=== PATIENT | female | born 1990 | race Two or more races ===

== ENCOUNTER 2019-02-10 18:59 | Inpatient (IN) | payer SELFPAY ==
[~2019-02-10] VITALS: Ht 160 cm; Wt 86.2 kg
[2019-02-10 20:15] LABS: Basophils # (auto) 0.1 uL; Eosinophils % (auto) 0.2 % (0.0-7.0)
[2019-02-10 20:17] LABS: Basophils % (auto) 0.3 % (0.0-2.0); Eosinophils # (auto) 0.1 uL; Hematocrit 28.4 % (36.0-46.0); Hemoglobin 9.1 g/dL (12.2-16.2); Lymphocytes % (auto) 7.5 % (10.0-50.0); Mean Corpuscular Hemoglobin 24.6 pg (28.0-32.0); Mean Corpuscular Hgb Conc. 31.9 g/dL (32.0-36.0); Monocytes # (auto) 1.4 uL; Monocytes % (auto) 5.3 % (0.0-12.0); Neutrophils # (auto) 22.9 uL; Neutrophils % (auto) 86.7 % (37.0-80.0); Platelet Count (auto) 418 10^3/uL (140-450); Red Blood Cells 3.68 10^6/uL (4.0-5.20); Red Cell Distribution Width 15.3 % (11.8-14.3); White Blood Cell 26.4 10^3/uL (4.4-10.8)
[2019-02-10 20:33] LABS: Albumin 1.9 g/dL (3.4-5.0); BUN/Creatinine Ratio 12.6; Calcium 8.8 mg/dL (8.5-10.1); Potassium 3.7 mmol/L (3.5-5.1)
[2019-02-10 20:36] LABS: Urine Bacteria MANY /hpf (None Seen); Urine Blood 2+ /uL (Negative); Urine Mucus FEW (None Seen); Urine Specific Gravity 1.015 (1.001-1.035); Urine WBC 5 /hpf (0 - 5)
[2019-02-10 20:36] LABS: Bilirubin, Total 0.3 mg/dL (0.2-1.0); Total Protein 8.9 g/dL (6.4-8.2)
[2019-02-11] MEDS ORDERED: VANCOMYCIN PER PHARMACY 1,000 MG IV SCH (05:45)
[2019-02-11] MEDS ORDERED: SODIUM CHLORIDE 0.9% 2,450 ML IV ONE (05:45)
[2019-02-11] MEDS ORDERED: PIPERACILLIN-TAZOB 3.375GM 100 ML IV SCH (06:00)
[2019-02-11 06:15] LABS: INR 0.94 (0.9-1.15); Prothrombin Time 10.1 sec (9.27-12.13)
[2019-02-11 07:16] LABS: Basophils # (auto) 0.1 uL; Eosinophils % (auto) 0.2 % (0.0-7.0); Lymphocytes % (auto) 7.6 % (10.0-50.0); Mean Corpuscular Hemoglobin 24.7 pg (28.0-32.0)
[2019-02-11 07:18] LABS: Basophils % (auto) 0.5 % (0.0-2.0); Eosinophils # (auto) 0 uL; Hematocrit 28.3 % (36.0-46.0); Hemoglobin 9.1 g/dL (12.2-16.2); Lymphocytes # (auto) 2.1 uL; Mean Corpuscular Volume 77.1 fL (80.0-100.0); Monocytes # (auto) 1.3 uL; Monocytes % (auto) 4.6 % (0.0-12.0); Neutrophils # (auto) 24.5 uL; Neutrophils % (auto) 87.1 % (37.0-80.0); Platelet Count (auto) 431 10^3/uL (140-450); Red Blood Cells 3.68 10^6/uL (4.0-5.20); Red Cell Distribution Width 14.8 % (11.8-14.3); White Blood Cell 28.1 10^3/uL (4.4-10.8)
[2019-02-11 07:35] LABS: Albumin 1.9 g/dL (3.4-5.0); BUN/Creatinine Ratio 11.9; Calcium 8.9 mg/dL (8.5-10.1); Potassium 4.2 mmol/L (3.5-5.1)
[2019-02-11 07:38] LABS: Bilirubin, Total 0.4 mg/dL (0.2-1.0); Total Protein 9.5 g/dL (6.4-8.2)
[2019-02-11] MEDS ORDERED: NEOMYCIN-POLYMY-DEXAMETH 0.1% OPTH(EYE) OINT 3.5GM EACHEYE ONE (07:45)
[2019-02-11] MEDS ORDERED: ENOXAPARIN SOD 60 MG/0.6 ML SYRINGE SC ONE (07:45)
[2019-02-11] MEDS ORDERED: SODIUM CHLORIDE 0.9% 1,000 ML IV SCH ×2 (08:45→09:15)
[2019-02-11] MEDS ORDERED: ONDANSETRON HCL 4 MG/2 ML VIAL IV PRN (08:45)
[2019-02-11] MEDS ORDERED: ACETAMINOPHEN 500 MG TAB PO PRN (08:45)
[2019-02-11] MEDS ORDERED: NITROGLYCERIN 0.4 MG SL TAB SL PRN (08:45)
[2019-02-11] MEDS ORDERED: SODIUM CHLORIDE 0.9% 1,000 ML IV ONE (08:45)
[2019-02-11] MEDS ORDERED: VANCOMYCIN PER PHARMACY 0 MG IV SCH (08:45)
[2019-02-11] MEDS ORDERED: MORPHINE SULF INJ 2 MG/ML SYRINGE 1ML IV PRN ×2 (08:45)
[2019-02-11] MEDS ORDERED: DEXTROSE (50%) 50ML SYRG IV PRN (08:45)
[2019-02-11] MEDS ORDERED: cefTRIAXone 1GM/50ML D5W 50 ML IV SCH (09:00)
[2019-02-11] MEDS ORDERED: ACETAMINOPHEN 500 MG TAB PO ONE (09:00)
[2019-02-11] MEDS ORDERED: PIPERACILLIN-TAZOB 3.375GM 100 ML IV ONE (09:30)
[2019-02-11] MEDS ORDERED: VANCOMYCIN 1GM/250ML 250 ML IV SCH (10:00)
[2019-02-11] MEDS ORDERED: VANCOMYCIN 1GM/250ML 250 ML IV ONE ×2 (10:00)
[2019-02-11 10:25] LABS: Creatinine, Urine 260 mg/dL (30.0-125.0); Sodium Urine 43 mmol/L (40-220)
[2019-02-11] MEDS: ACCU-CHEK COMFORT CURVE STRIP VI SCH ×3 (11:56→21:44)
[2019-02-11] MEDS: VANCOMYCIN 1GM/250ML 250 ML IV SCH (12:04)
[2019-02-11] MEDS: PANTOPRAZOLE 40 MG/10 ML VIAL IV SCH (12:04)
[2019-02-11] MEDS: InsuLIN REG 1unit/0.01ml Soln (100units/ml) SC SCH ×3 (12:04→21:44)
[2019-02-11] MEDS: SODIUM CHLORIDE 0.9% 1,000 ML IV SCH ×2 (12:04→18:14)
[2019-02-11] MEDS: NEOMYCIN-POLYMY-DEXAMETH 0.1% OPTH(EYE) OINT 3.5GM EACHEYE SCH ×2 (14:20→21:44)
--- NOTE | 2019-02-11 15:05 | NUR ---
Telemetry admit from ER ANGY DACOSTA admitted to Telemetry unit after SBAR received. Patient oriented to HENRY back RN, unit, room, bed, and unit policies regarding patient care and visiting hours. Patient now on continuous telemetry monitoring, tele box # 12 and telemetry reading on arrival to unit is . Patient weighed by bedscale and encouraged to call if they need something. All questions and concerns addressed, patient verbalized understanding. Note:
[2019-02-11 17:00] VITALS: BP 154/73
--- NOTE | 2019-02-11 18:57 | NUR ---
END OF SHIFT NOTE PATIENT AWAKE AND ALERT SITTING UP IN BED. NO S/S OF DISTRESS OR SOB NOTED. BED IN LOWEST LOCKED POSITION, CALL LIGHT WITHIN REACH. WILL ENDORSE CARE TO NOC RN.
--- NOTE | 2019-02-11 19:25 | NUR ---
Opening Shift Note Received report from Leah YIP. Assumed care of patient, awake and alert. No S/S of distress/SOB or pain. Instructed on POC and to call for assist PRN, will continue to monitor for changes Q1hr and PRN.
--- NOTE | 2019-02-11 21:44 | NUR ---
Temp of 100.1, Tylenol PO given, cooling measures done, continue care.
[2019-02-11 22:55] VITALS: BP 135/79
--- NOTE | 2019-02-11 23:15 | NUR ---
Latest temperature is 99.2, will continue to monitor.
[2019-02-12] MEDS: SODIUM CHLORIDE 0.9% 1,000 ML IV SCH ×3 (01:57→14:40)
--- NOTE | 2019-02-12 04:08 | NUR ---
Urine sample sent to laboratory.
[2019-02-12 05:29] VITALS: BP 155/90
[2019-02-12 06:11] LABS: Basophils # (auto) 0.1 uL; Basophils % (auto) 0.3 % (0.0-2.0); Eosinophils # (auto) 0.2 uL; Hemoglobin 7.6 g/dL (12.2-16.2); Monocytes # (auto) 1.1 uL; Monocytes % (auto) 4.9 % (0.0-12.0)
[2019-02-12 06:13] LABS: Eosinophils % (auto) 1.1 % (0.0-7.0); Hematocrit 23.7 % (36.0-46.0); Lymphocytes # (auto) 1.4 uL; Lymphocytes % (auto) 6.6 % (10.0-50.0); Mean Corpuscular Hemoglobin 24.8 pg (28.0-32.0); Mean Corpuscular Hgb Conc. 32.1 g/dL (32.0-36.0); Mean Corpuscular Volume 77.3 fL (80.0-100.0); Neutrophils # (auto) 18.7 uL; Neutrophils % (auto) 87.1 % (37.0-80.0); Platelet Count (auto) 386 10^3/uL (140-450); Red Blood Cells 3.07 10^6/uL (4.0-5.20); White Blood Cell 21.4 10^3/uL (4.4-10.8)
[2019-02-12 06:34] LABS: Albumin 1.5 g/dL (3.4-5.0); BUN/Creatinine Ratio 12.7; Calcium 8.2 mg/dL (8.5-10.1); Potassium 3.5 mmol/L (3.5-5.1)
[2019-02-12 06:36] LABS: Bilirubin, Total 0.4 mg/dL (0.2-1.0); Total Protein 7.6 g/dL (6.4-8.2)
[2019-02-12] MEDS: NEOMYCIN-POLYMY-DEXAMETH 0.1% OPTH(EYE) OINT 3.5GM EACHEYE SCH ×3 (06:39→21:47)
[2019-02-12] MEDS: ACCU-CHEK COMFORT CURVE STRIP VI SCH ×4 (06:39→21:47)
[2019-02-12] MEDS: InsuLIN REG 1unit/0.01ml Soln (100units/ml) SC SCH ×4 (06:39→21:47)
[2019-02-12 07:23] LABS: Urine Bacteria NONE SEEN /hpf (None Seen); Urine Blood 1+ /uL (Negative); Urine Mucus FEW (None Seen); Urine Specific Gravity 1.008 (1.001-1.035); Urine WBC 1 /hpf (0 - 5)
--- NOTE | 2019-02-12 07:45 | NUR ---
Opening Shift Note Assumed care of patient, awake and alert. Breath sounds even and unlabored, saturating at 97%. No S/S of distress/SOB or pain. Instructed on POC and to call for assist PRN, will continue to monitor for changes Q1hr and PRN.
--- NOTE | 2019-02-12 07:52 | NUR ---
Patient afebrile, no sob or pain. Endorsed care to Amber YIP.
[2019-02-12 08:00] VITALS: BP 134/89
[2019-02-12 08:49] LABS: Protein, Urine 253.2 mg/dL (0.0-11.9)
[2019-02-12 09:00] VITALS: BP 134/89
--- NOTE | 2019-02-12 09:00 | NUR ---
Respiratory note: SCHEDULE ABG NOT DONE. PT REFUSED. RN AWARE OF IT.
--- NOTE | 2019-02-12 09:00 | NUR ---
Respiratory note: PT REFUSED ABG. DID NOT WANT IT DONE. RN AWARE OF REFUSAL.
[2019-02-12] MEDS: PANTOPRAZOLE 40 MG/10 ML VIAL IV SCH (09:30)
[2019-02-12] MEDS: HYDROcodone-ACET 5/325MG TAB PO PRN (09:30)
[2019-02-12] MEDS: cefTRIAXone 1GM/50ML D5W 50 ML IV SCH (09:30)
[2019-02-12] MEDS: VANCOMYCIN 1GM/250ML 250 ML IV SCH (11:46)
[2019-02-12 13:00] VITALS: BP 126/74
[2019-02-12] MEDS ORDERED: IPRATROPIUM BROM 0.5 MG/2.5ML INH SOL NEB PRN (14:15)
[2019-02-12] MEDS ORDERED: AZITHROMYCIN 500MG/ 250ML 250 ML IV ONE (14:15)
[2019-02-12] MEDS ORDERED: ALBUTEROL SULF 2.5 MG/0.5ML(0.5%) NEB SOLN NEB PRN (14:15)
[2019-02-12] MEDS ORDERED: ERGOCALCIFEROL 50,000 UNIT(1.25MG) CAP PO SCH (14:45)
--- NOTE | 2019-02-12 15:10 | NUR ---
Urine culture sent to Lab
[2019-02-12 16:05] LABS: Alcohol, Urine < 3.0 mg/dL (0-5); Amphetamine Screen, Urine NEGATIVE (NEGATIVE); Barbiturate Scree,Urine NEGATIVE (NEGATIVE); Benzodiazephine Screen, Urine NEGATIVE (NEGATIVE); Cannabinoid Screen, Urine NEGATIVE (NEGATIVE); Cocaine Screen, Urine NEGATIVE (NEGATIVE); Opiate Scree,Urine NEGATIVE (NEGATIVE); Phencyclidine Screen, Urine NEGATIVE (NEGATIVE)
[2019-02-12 16:08] LABS: % Iron Saturation 12.9 % (15-50)
--- NOTE | 2019-02-12 16:40 | NUR ---
Rapid influenza swab sent to lab.
[2019-02-12 16:55] VITALS: BP 122/74
--- NOTE | 2019-02-12 19:22 | NUR ---
No s/s of distress noted/stated. Bed at lowest position and call light within reach. Care endorsed to NOC RN.
--- NOTE | 2019-02-12 19:30 | NUR ---
Opening Shift Note Received report from Amber YIP. Assumed care of patient, awake and alert. No S/S of distress/SOB or pain. Non-productive cough noted. Instructed on POC and to call for assist PRN, will continue to monitor for changes Q1hr and PRN.
[2019-02-12 20:00] VITALS: BP 138/82
[2019-02-12] MEDS: ALBUTEROL SULF 2.5 MG/0.5ML(0.5%) NEB SOLN NEB SCH (21:17)
[2019-02-12] MEDS: IPRATROPIUM BROM 0.5 MG/2.5ML INH SOL NEB SCH (21:17)
[2019-02-13] VITALS (12 sets, daily range): BP systolic 129–154; BP diastolic 70–87
[2019-02-13] MEDS: ALBUTEROL SULF 2.5 MG/0.5ML(0.5%) NEB SOLN NEB SCH ×4 (00:56→19:55)
[2019-02-13] MEDS: IPRATROPIUM BROM 0.5 MG/2.5ML INH SOL NEB SCH ×4 (00:56→19:55)
[2019-02-13] MEDS: SODIUM CHLORIDE 0.9% 1,000 ML IV SCH (04:01)
[2019-02-13 06:11] LABS: Basophils # (auto) 0.1 uL; Basophils % (auto) 0.4 % (0.0-2.0); Eosinophils # (auto) 0.2 uL; Lymphocytes # (auto) 1.6 uL
[2019-02-13 06:14] LABS: Eosinophils % (auto) 1.3 % (0.0-7.0); Hematocrit 20.9 % (36.0-46.0); Lymphocytes % (auto) 9.6 % (10.0-50.0); Mean Corpuscular Hemoglobin 24.8 pg (28.0-32.0); Mean Corpuscular Hgb Conc. 32.1 g/dL (32.0-36.0); Mean Corpuscular Volume 77.4 fL (80.0-100.0); Monocytes % (auto) 6.2 % (0.0-12.0); Neutrophils # (auto) 13.7 uL; Neutrophils % (auto) 82.5 % (37.0-80.0); Platelet Count (auto) 376 10^3/uL (140-450); Red Cell Distribution Width 14.9 % (11.8-14.3); White Blood Cell 16.7 10^3/uL (4.4-10.8)
[2019-02-13 06:16] LABS: Hemoglobin 6.7 g/dL (12.2-16.2)
[2019-02-13] MEDS: ACCU-CHEK COMFORT CURVE STRIP VI SCH ×4 (06:42→21:49)
[2019-02-13] MEDS: NEOMYCIN-POLYMY-DEXAMETH 0.1% OPTH(EYE) OINT 3.5GM EACHEYE SCH ×3 (06:42→21:50)
[2019-02-13 06:51] LABS: Calcium 8.2 mg/dL (8.5-10.1); Potassium 3.4 mmol/L (3.5-5.1)
[2019-02-13 06:55] LABS: Albumin 1.3 g/dL (3.4-5.0); BUN/Creatinine Ratio 8.8; Bilirubin, Total 0.2 mg/dL (0.2-1.0); Total Protein 7.3 g/dL (6.4-8.2)
[2019-02-13] MEDS: InsuLIN REG 1unit/0.01ml Soln (100units/ml) SC SCH ×4 (07:08→21:56)
[2019-02-13] MEDS: cefTRIAXone 1GM/50ML D5W 50 ML IV SCH (08:33)
--- NOTE | 2019-02-13 09:35 | NUR ---
OFF Unit Patient brought down to Nuclear Med department for NM VQ Scan.
--- NOTE | 2019-02-13 10:25 | NUR ---
Back to room.
[2019-02-13] MEDS: VANCOMYCIN 1GM/250ML 250 ML IV SCH (10:47)
[2019-02-13] MEDS: PANTOPRAZOLE 40 MG/10 ML VIAL IV SCH (10:47)
--- NOTE | 2019-02-13 10:53 | NUR ---
2D ECHO being done at bedside.
--- NOTE | 2019-02-13 11:55 | NUR ---
Dr. Degroot at bedside.
[2019-02-13] MEDS: AZITHROMYCIN 500MG/ 250ML 250 ML IV SCH (12:05)
--- NOTE | 2019-02-13 12:23 | NUR ---
Elevated BP BP 154/82, per Dr. Degroot give Lasix now instead of after blood transfusion. Lasix IV given.
[2019-02-13] MEDS ORDERED: FUROSEMIDE 40 MG/4 ML VIAL IV ONE (13:30)
--- NOTE | 2019-02-13 14:20 | NUR ---
Received report from THEODORA Teague and assumed care of patient.
--- NOTE | 2019-02-13 19:35 | NUR ---
Pre blood transfusion v/S: Temp 99.1, BP 147/80,RR 18 , HR 104.
--- NOTE | 2019-02-13 19:56 | NUR ---
IST unit of blood transfusion started as ordered after blood checked with THEODORA Stern. Will continue to monitor.
[2019-02-13] MEDS ORDERED: AMLO5TAB13 PO (20:12)
[2019-02-13] MEDS ORDERED: INSU100I27 SC (20:12)
[2019-02-13] MEDS ORDERED: INSU1INJ4 SC (20:12)
--- NOTE | 2019-02-13 22:35 | NUR ---
Blood transfusion completed. No blood transfusion reaction presented. Will continue to monitor.
--- NOTE | 2019-02-13 23:35 | NUR ---
post BT V/S: Temp 98.6, HR 105 , RR 18 , BP 142/77.
[2019-02-14] MEDS: ALBUTEROL SULF 2.5 MG/0.5ML(0.5%) NEB SOLN NEB SCH ×4 (00:36→19:29)
[2019-02-14] MEDS: IPRATROPIUM BROM 0.5 MG/2.5ML INH SOL NEB SCH ×4 (00:37→19:29)
--- NOTE | 2019-02-14 05:00 | NUR ---
Cordova catheter dc'd Order to discontinue cordova catheter. Cordova dc'd with clean technique following deflation of balloon. Patient tolerated well with no complaints of pain. Continue care.
[2019-02-14 05:45] VITALS: BP 132/67
[2019-02-14] MEDS: ACCU-CHEK COMFORT CURVE STRIP VI SCH ×4 (06:38→22:08)
[2019-02-14] MEDS: NEOMYCIN-POLYMY-DEXAMETH 0.1% OPTH(EYE) OINT 3.5GM EACHEYE SCH ×3 (06:38→21:56)
[2019-02-14] MEDS: InsuLIN REG 1unit/0.01ml Soln (100units/ml) SC SCH ×4 (06:38→22:00)
[2019-02-14] MEDS: cefTRIAXone 1GM/50ML D5W 50 ML IV SCH (09:00)
[2019-02-14] MEDS: PANTOPRAZOLE 40 MG/10 ML VIAL IV SCH (09:00)
[2019-02-14] MEDS: HYDROcodone-ACET 5/325MG TAB PO PRN (09:16)
[2019-02-14 09:31] VITALS: BP 133/77
[2019-02-14 09:41] LABS: Albumin 1.4 g/dL (3.4-5.0); BUN/Creatinine Ratio 6.9; Calcium 8.4 mg/dL (8.5-10.1)
[2019-02-14 09:42] LABS: Bilirubin, Total 0.2 mg/dL (0.2-1.0); Total Protein 7.9 g/dL (6.4-8.2)
[2019-02-14 09:52] LABS: Hematocrit 25.6 % (36.0-46.0); Hemoglobin 8.3 g/dL (12.2-16.2)
[2019-02-14] MEDS: VANCOMYCIN 1,250 MG in D5W 5% 250 ML IV SCH (11:17)
[2019-02-14] MEDS ORDERED: POTASSIUM CHL 20 Meq TABLET PO ONE (11:30)
[2019-02-14] MEDS: AZITHROMYCIN 500MG/ 250ML 250 ML IV SCH (12:00)
[2019-02-14 12:45] VITALS: BP 145/79
[2019-02-14] MEDS: SODIUM FERR GLUC 62.5MG/5ML 125 MG in SODIUM CHL 0.9% 100 ML IV SCH (13:24)
--- NOTE | 2019-02-14 15:14 | NUR ---
NUTRITION ASSESSMENT NOTES Please refer to link notes of nutrition screen form filed under the intervention section of the plan of care for further details. Est. Needs: 1250 kcal to 1700 kcal (15-20 kcal/kgBW), 68 gms to 85 gms pro (0.8-1.0 gms/kgBW). Will continue to monitor pertinent labs and reassess nutrient need prn Thank you. Addendum: 02/14/19 at [address] Amended: Links added.
[2019-02-14 17:18] VITALS: BP 134/77
--- NOTE | 2019-02-14 20:00 | NUR ---
SHIFT OPENING NOTE: PATIENT RESTING AT BED WITH NO COMPLAINTS OF CHEST PAIN OR SHORTNESS OF BREATH. SHE IS AWARE OF HER PLAN OF CARE AND UNDERSTANDS TO USE CALL LIGHT IF NEEDED. WILL CONTINUE TO MONITOR.
[2019-02-14 22:20] VITALS: BP 132/78
[2019-02-15] MEDS: IPRATROPIUM BROM 0.5 MG/2.5ML INH SOL NEB SCH ×3 (00:10→11:36)
[2019-02-15] MEDS: ALBUTEROL SULF 2.5 MG/0.5ML(0.5%) NEB SOLN NEB SCH ×3 (00:10→11:36)
--- NOTE | 2019-02-15 00:10 | NUR ---
PT REFUSED MED NEB TX. DENIES SOB AT THIS TIME.
[2019-02-15 05:07] VITALS: BP 136/83
[2019-02-15] MEDS: InsuLIN REG 1unit/0.01ml Soln (100units/ml) SC SCH ×2 (06:01→11:17)
[2019-02-15] MEDS: ACCU-CHEK COMFORT CURVE STRIP VI SCH ×2 (06:02→11:17)
[2019-02-15] MEDS: NEOMYCIN-POLYMY-DEXAMETH 0.1% OPTH(EYE) OINT 3.5GM EACHEYE SCH (06:02)
[2019-02-15 06:13] LABS: Hematocrit 24.7 % (36.0-46.0); Mean Corpuscular Hemoglobin 25.6 pg (28.0-32.0); Platelet Count (auto) 477 10^3/uL (140-450)
[2019-02-15 06:16] LABS: Hemoglobin 7.9 g/dL (12.2-16.2); Mean Corpuscular Hgb Conc. 32.2 g/dL (32.0-36.0); Mean Corpuscular Volume 79.5 fL (80.0-100.0); Red Cell Distribution Width 15.4 % (11.8-14.3); White Blood Cell 11.5 10^3/uL (4.4-10.8)
[2019-02-15 06:21] LABS: Potassium 3.6 mmol/L (3.5-5.1)
[2019-02-15 06:25] LABS: Cholesterol 168 mg/dL (< 200); HDL Cholesterol 29 mg/dL (40-59); LDL Cholesterol 122 mg/dL (< 100); Triglycerides 98 mg/dL (< 150)
[2019-02-15 06:27] LABS: BUN/Creatinine Ratio 6.1; Calcium 8.5 mg/dL (8.5-10.1)
[2019-02-15 06:51] LABS: Basophils % (manual) 0 (0.0-2.0); Blast Cells 0; Metamyelocytes % 0; Promyelocytes % 0; Reactive Lymphocytes 0
[2019-02-15 07:57] LABS: Band Neutrophils % (manual) 1; Eosinophils % (manual) 1 (0-7); Lymphocytes % (manual) 21 (10.0-50.0); Monocytes % (manual) 12 (0-12); Myelocytes % 1
[2019-02-15] MEDS: cefTRIAXone 1GM/50ML D5W 50 ML IV SCH (08:47)
[2019-02-15 09:23] VITALS: BP 141/79
[2019-02-15] MEDS: PANTOPRAZOLE 40 MG/10 ML VIAL IV SCH (09:40)
[2019-02-15] MEDS ORDERED: METOPROLOL SUCCINATE XL 50 MG TAB PO SCH (10:00)
[2019-02-15] MEDS: VANCOMYCIN 1,250 MG in D5W 5% 250 ML IV SCH (10:53)
--- NOTE | 2019-02-15 11:02 | NUR ---
PT SEEN BY DR. MARQUEZ PER DR. MARQUEZ PT CAN GO HOME WITH ANTIBIOTIC AND NEW BLOOD PRESSURE MEDICATION. Addendum: 02/15/19 at 1105 by Sabiha Rinaldi RN PER PT SHE WILL FOLLOW UP WITH HER PCP IN [place].
[2019-02-15] MEDS ORDERED: AZITHROMYCIN 250 MG TAB PO ONE (11:30)
[2019-02-15] MEDS ORDERED: AMOX-263 PO (11:34)
[2019-02-15] MEDS ORDERED: ERGO1CAP23 PO (11:34)
[2019-02-15] MEDS ORDERED: FER325T PO (11:34)
[2019-02-15] MEDS ORDERED: MET5XLT PO (11:34)
[2019-02-15] MEDS ORDERED: AZIT500T4 PO (11:34)
--- NOTE | 2019-02-15 11:36 | NUR ---
Respiratory note: SCHEDULED MED NEB TX NOT GIVEN. THERAPIST UNAVAILABLE. GOT CALLED FOR A AFTER ASSESSING THE PATIENT. NO DISTRESS NOTED. HR 107, RR 16, SPO2 97% ON ROOM AIR. BS ARE CLEAR AND DIMINISHED.
[2019-02-15 13:10] VITALS: BP 139/98
[2019-02-15] MEDS: SODIUM FERR GLUC 62.5MG/5ML 125 MG in SODIUM CHL 0.9% 100 ML IV SCH (13:33)
[2019-02-15 14:50] VITALS: BP 143/88
--- NOTE | 2019-02-15 15:30 | NUR ---
Discharge instructions given as ordered. Encourage to follow up with [facility] IN 1 WEEK. PT INSTRUCTED TO CALL GOYO FRANKLIN TO HELP HER WITH HER APPOINTMENT ALL INFORMATION FOR TEL# AND ADDRESS PROVIDED TO THE PT as instructed. All questions and concerns addressed. Patient verbalized understanding. Medication reconciliation form completed and copy given to patient. IV removed with catheter intact, pressure dressing applied. Telemetry unit returned to ICU. Patient taken to vehicle via wheelchair with all personal belongings, accompanied by staff and family member. No distress noted at time of departure.
== END 2019-02-15 15:30 | disposition home or self-care (01) | DRG 871 ==
LOC: ER 18:59 → TELE 02-11 08:45 → TELE-WESTW 02-11 14:37
PROVIDERS: ADMIT Nurse Practitioner Acute Care; ATTEND Internal Medicine
PROC: 30233N1 Transfusion of Nonautologous Red Blood Cells into Peripheral Vein, Percutaneous Approach (ICD-10-PCS; principal; 2019-02-13)
DX: A41.9 Sepsis, unspecified organism (principal); E43 Unspecified severe protein-calorie malnutrition; J18.9 Pneumonia, unspecified organism; J96.00 Acute respiratory failure, unspecified whether with hypoxia or hypercapnia; N17.0 Acute kidney failure with tubular necrosis; N39.0 Urinary tract infection, site not specified; D50.9 Iron deficiency anemia, unspecified; E10.21 Type 1 diabetes mellitus with diabetic nephropathy; E10.22 Type 1 diabetes mellitus with diabetic chronic kidney disease; E10.65 Type 1 diabetes mellitus with hyperglycemia; E55.9 Vitamin D deficiency, unspecified; E78.5 Hyperlipidemia, unspecified; E86.0 Dehydration; E87.70 Fluid overload, unspecified; H10.9 Unspecified conjunctivitis; H54.7 Unspecified visual loss; I12.9 Hypertensive chronic kidney disease with stage 1 through stage 4 chronic kidney disease, or unspecified chronic kidney disease; K76.0 Fatty (change of) liver, not elsewhere classified; N18.3 Chronic kidney disease, stage 3 (moderate); Z79.4 Long term (current) use of insulin; Z89.411 Acquired absence of right great toe; Z68.33 Body mass index [BMI] 33.0-33.9, adult
CPT/HCPCS: 36415; 36600; 51702; 71045; 74176; 78582; 80048; 80053; 80061; 80202; 80307; 81001; 82306; 82553; 82570; 82728; 82805; 82962; 83036; 83540; 83550; 83605; 84100; 84156; 84300; 84443; 84484; 84702; 85007; 85014; 85018; 85025; 85027; 85379; 85610; 85730; 86850; 86900; 86901; 86920; 87040; 87086; 87804; 93005; 93306; 94640; 96365; 96366; 96375; 99291; C9113; G0378; J0696; J1815; J2543; J7060